=== PATIENT | male | born 1950 | race Caucasian/White ===

== ENCOUNTER 2017-01-07 10:39 | Outpatient (RCR) | payer MEDICARE, OTHER ==
[~2017-01-07 10:39] MED LIST: ASPIRIN E.C. 8181 MG PO; CHROMIUM PICO400 MCG PO; CINNAMON500 MG PO; FISH OIL1 IU PO; GLUCOSAMINE & C1 CA2 PO; GLUCOSAMINE PO; LORTAB 5/500 501 TAB PO; MAREPA1200 MG PO; MULTIPLE VITAMI1 CAP PO; PRILOSEC 20MG20 MG PO; PROBIOTIC FORMU1 CAP PO; VITAMINS
== END 2017-01-07 11:59 | disposition home or self-care (01) ==
LOC: WSPT 10:39
DX: Z01.818 Encounter for other preprocedural examination (principal); M25.862 Other specified joint disorders, left knee
CPT/HCPCS: G8978-GP; G8979-GP; G8980-GP

== ENCOUNTER 2017-03-18 08:45 | Outpatient (RCR) | payer MEDICARE, OTHER | END 2017-03-23 11:14 | disposition still patient (30) | LOC: WSPT 08:45 | DX: Z47.89 Encounter for other orthopedic aftercare (principal); M23.42 Loose body in knee, left knee | CPT/HCPCS: G8978-GP; G8979-GP ==

== ENCOUNTER 2017-09-02 02:12 | Emergency (ER) | payer MEDICARE, OTHER ==
[~2017-09-02] VITALS: Ht 167.6 cm; Wt 70.9 kg
[2017-09-02 02:14] VITALS: BP 146/67; TEMP 98
[2017-09-02] MEDS ORDERED: COZAAR 25MG25 MG/TAB PO (02:17)
[2017-09-02 03:41] VITALS: PULSE 61
== END 2017-09-02 03:41 | disposition home or self-care (01) ==
LOC: COL.ER 02:12
DX: H10.9 Unspecified conjunctivitis (principal); R09.89 Other specified symptoms and signs involving the circulatory and respiratory systems; I10 Essential (primary) hypertension; Z79.82 Long term (current) use of aspirin

== ENCOUNTER → 2018-10-24 | Outpatient (CLI) | payer MEDICARE, OTHER ==
[~2018-10-24] MED LIST changes: +COZAAR 25MG25 MG/TAB PO
== END ==
LOC: COL.CARD 08:00
DX: R03.0 Elevated blood-pressure reading, without diagnosis of hypertension (principal)

== ENCOUNTER → 2022-01-08 | Outpatient (RCR) | payer MEDICARE, OTHER | END | disposition still patient (30) | LOC: WSPT | DX: M54.12 Radiculopathy, cervical region (principal) ==

== ENCOUNTER 2022-01-22 09:00 | Outpatient (RCR) | payer MEDICARE, OTHER | END 2022-01-22 09:59 | disposition home or self-care (01) | LOC: WSPT 09:00 | DX: M54.12 Radiculopathy, cervical region (principal) ==

== ENCOUNTER → 2022-04-28 | Outpatient (CLI) | payer MEDICARE, OTHER ==
[~2022-04-28] VITALS: Ht 167.6 cm; Wt 72.5 kg
[~2022-04-28] MED LIST changes: +CENTRUM SILVER1 TA2 PO; -CHROMIUM PICO400 MCG PO; +CHROMIUM PICOLI1 TA8 PO; +CRESTOR 10MG10 MG PO; +GLUCOPHAGE500 MG/TAB PO; -MAREPA1200 MG PO; +MASON NATURAL1200 MG PO; -MULTIPLE VITAMI1 CAP PO; +PROBIOTIC BLEN1 EACH PO; -PROBIOTIC FORMU1 CAP PO
[2022-04-28 12:53] VITALS: BP 159/90; PULSE 66; TEMP 98
[2022-04-28 14:10] VITALS: BP 161/93; PULSE 71
== END ==
LOC: COL.RAD 12:17
DX: M54.12 Radiculopathy, cervical region (principal)
CPT/HCPCS: J1100

== ENCOUNTER 2024-02-28 15:00 | Outpatient (RCR) | payer MEDICARE, OTHER ==
[~2024-02-28 15:00] MED LIST changes: +CHROMIUM PO; +EPA FISH OIL1 SGL PO; +TRULICITY0.75 MG/0. SQ
== END 2024-03-10 ==
LOC: WSPT
DX: M54.12 Radiculopathy, cervical region (principal)

== ENCOUNTER → 2024-08-10 | Outpatient (CLI) | payer MEDICARE, OTHER | LOC: COL.RAD 08:02 | DX: M47.22 Other spondylosis with radiculopathy, cervical region (principal); M48.02 Spinal stenosis, cervical region; M25.78 Osteophyte, vertebrae ==